=== PATIENT | female | born 1950 | race Caucasian/White ===

== ENCOUNTER 2020-05-18 13:12 | Outpatient (CLI) | payer MEDICARE, OTHER ==
[~2020-05-18 13:12] MED LIST: Magnevist 469MG/ML 20 ML VIAL ONE
--- NOTE | 2020-05-18 15:15 | MRI ---
MRI OF THE BRAIN WITH AND WITHOUT IV CONTRAST: 05/18/20 HISTORY: Confusion, slurred speech. FINDINGS: There are multiple foci of T2 prolongation in the periventricular white matter consistent with chroni c small vessel ischemic disease. The ventricular size is appropriate and the basilar cisterns patent. No restricted diffusion is noted. 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 No infarct, hemorrhage, mass, midline shift or abnormal extra-axial fluid collections are seen. No a bnormal postcontrast enhancement is identified. There is mucosal disease in the right sphenoid sinus. IMPRESSION: Chronic changes. No evidence of acute intracranial process or mass. POS: AH
== END 2020-05-18 13:13 | disposition home or self-care (01) ==
LOC: MRI 13:12
PROVIDERS: ATTEND Nurse Practitioner Family
DX: R41.0 Disorientation, unspecified (principal)
CPT/HCPCS: 70553; A9579

== ENCOUNTER 2021-03-07 15:54 | Inpatient (IN) | payer MEDICARE, OTHER ==
[2021-03-07] MEDS ORDERED: Boostrix 0.5 ML (Tdap) VIAL ONE (16:13)
[2021-03-07] MEDS ORDERED: Lidocaine 1% (PF) 30 ML VIAL ONE (16:13)
[2021-03-07 16:48] LABS: INR-International Normal Ratio 0.9
[2021-03-07] MEDS ORDERED: Fentanyl 100 MCG/2 ML VIAL ONE (16:54)
[2021-03-07] MEDS ORDERED: PROPOFOL 0 ML ONE (16:54)
[2021-03-07 16:55] LABS: PTT 22.7 sec (22.9-36.1)
[2021-03-07 17:02] LABS: ALT (SGPT) 23 U/L (8-55); AST (SGOT) 23 U/L (5-34); Albumin 3.7 g/dL (3.4-4.8); Alkaline Phosphatase 80 U/L (40-110); Anion Gap 12 mmol/L (10-20); BUN (Urea Nitrogen) 10 mg/dL (9.8-20.1); Bilirubin, Total 0.3 mg/dL (0.2-1.2); Calc. Creatinine Clearance 0 mL/min (70-130); Calcium 8.2 mg/dL (7.8-10.44); Carbon Dioxide 26 mmol/L (23-31); Chloride 108 mmol/L (98-107); Globulin 2.7 g/dL (2.4-3.5); Glucose 134 mg/dL (83-110); Potassium 4.2 mmol/L (3.5-5.1); Protein, Total 6.4 g/dL (5.8-8.1); Sodium 142 mmol/L (136-145)
[2021-03-07] MEDS ORDERED: Dextrose 5% in Water 1,000 ML IV PRN (19:16)
[2021-03-07] MEDS ORDERED: Dextrose 50% Abboject 50 ML SYRINGE SLOW IVP PRN (19:16)
[2021-03-07] MEDS ORDERED: Ondansetron PF 4 MG/2 ML Vial IVP PRN (19:16)
[2021-03-07] MEDS ORDERED: hydrALAZINE 20 MG/ML VIAL SLOW IVP PRN (19:16)
[2021-03-07] MEDS ORDERED: Cyclobenzaprine 10 MG TAB PO PRN (19:22)
[2021-03-07] MEDS ORDERED: Morphine 2 MG/ML VIAL SLOW IVP PRN (19:22)
[2021-03-07 23:04] VITALS: BMI 29.9
[2021-03-08] MEDS: Acetaminophen 325 MG TAB PO SCH ×4 (00:50→17:49)
[2021-03-08] MEDS: traMADol HCl 50 MG TAB PO SCH ×4 (00:50→17:50)
[2021-03-08] MEDS: Lactated Ringer's 1,000 ML IV SCH ×3 (00:50→20:27)
[2021-03-08] MEDS: Senokot S 8.6-50 MG TAB PO SCH ×3 (05:37→20:28)
[2021-03-08] MEDS: Oxazepam 10 MG CAP PO SCH ×3 (06:05→20:30)
[2021-03-08 06:19] LABS: SARS-CoV-2 NAA Rapid Test Not Detected (NotDetected)
[2021-03-08] MEDS ORDERED: CEFAZOLIN 2 GM in Premix Bag 1 BAG IVPB SCH (07:15)
[2021-03-08 08:59] LABS: #Basophils 0.1 thou/uL (0.0-0.2); #Eosinphils 0.1 thou/uL (0.0-0.7); #Lymphocytes 2.8 thou/uL (1.20-3.40); #Monocytes 1.1 thou/uL (0.11-0.59); #Neutrophils 4.2 thou/uL (1.40-6.50); %Basophils 0.7 % (0.0-1.0); %Eosinophils 1.3 % (0.0-10.0); %Lymphocytes 33.5 % (21.0-51.0); %Neutrophils 51.4 % (42.0-75.0); Hemoglobin 12.6 g/dL (12.0-16.0); Mean Corpuscular Hemoglobin 32.9 pg (27.0-31.0); Mean Corpuscular Volume 99.7 fL (78.0-98.0); Mean Platelet Volume 7.9 fL (7.4-10.4); Platelet Count 263 thou/uL (130-400); Red Blood Cell (RBC) Count 3.84 mill/uL (4.20-5.40); White Blood Cell (WBC) Count 8.2 thou/uL (4.8-10.8)
[2021-03-08 09:08] LABS: INR-International Normal Ratio 0.9; PTT 23.3 sec (22.9-36.1); Prothrombin Time 12.8 sec (12.0-14.7)
[2021-03-08 09:21] LABS: Phosphorus 3.1 mg/dL (2.3-4.7)
[2021-03-08 09:23] LABS: Anion Gap 13 mmol/L (10-20); BUN (Urea Nitrogen) 22 mg/dL (9.8-20.1); Calc. Creatinine Clearance 95 mL/min (70-130); Calcium 8.1 mg/dL (7.8-10.44); Carbon Dioxide 24 mmol/L (23-31); Chloride 105 mmol/L (98-107); Glucose 121 mg/dL (83-110); Potassium 4.1 mmol/L (3.5-5.1); Sodium 138 mmol/L (136-145)
[2021-03-08] MEDS: Gabapentin 100 MG CAP PO SCH ×3 (09:27→20:28)
[2021-03-08] MEDS: Thiamine 100 MG TAB PO SCH (09:27)
[2021-03-08] MEDS: Famotidine 20 MG TAB PO SCH ×2 (09:29→20:28)
[2021-03-08] MEDS: Folic Acid 1 MG TAB PO SCH (09:30)
[2021-03-08 11:28] LABS: Bacteria/HPF None Seen HPF (None Seen); Bilirubin Negative (Negative); Blood, Urine Negative (Negative); Clarity Clear (Clear); Glucose, Urine (Dipstick) 500 mg/dL (Negative); Ketone, Urine Trace mg/dL (Negative); Leukocyte Negative Leu/uL (Negative); Nitrite Negative (Negative); Protein, Urine (Dipstick) 10 mg/dL (Neg-Trace); RBC/HPF 0-3 HPF (0-3); Specific Gravity, Urine 1.033 (1.002-1.036); Squamous Epithelial 0-3 HPF (0-3); Urobilinogen Normal mg/dL (Less than 2); WBC/HPF 0-3 HPF (0-3)
[2021-03-08 11:41] LABS: Urine Culture Reflex No No
[2021-03-09] MEDS: Acetaminophen 325 MG TAB PO SCH ×4 (00:12→17:41)
[2021-03-09] MEDS: traMADol HCl 50 MG TAB PO SCH ×4 (00:13→17:39)
[2021-03-09] MEDS: traMADol HCl 50 MG TAB PO PRN ×2 (00:14→21:15)
[2021-03-09] MEDS: Oxazepam 10 MG CAP PO SCH ×3 (05:40→21:05)
[2021-03-09] MEDS ORDERED: Fentanyl 100 MCG/2 ML VIAL ONE ×4 (07:36→12:07)
[2021-03-09] MEDS ORDERED: Midazolam HCl 2 mg/2 ml Vial ONE (07:36)
[2021-03-09] MEDS ORDERED: PROPOFOL 200 MG/20 ML VIAL ONE (09:17)
[2021-03-09] MEDS ORDERED: Dexamethasone 20 MG/5 ML VIAL ONE (09:17)
[2021-03-09] MEDS ORDERED: Lidocaine 1% PF 5 ML VIAL ONE (09:17)
[2021-03-09] MEDS ORDERED: Ondansetron PF 4 MG/2 ML Vial ONE (09:17)
[2021-03-09] MEDS ORDERED: Ondansetron HCl/PF 4 MG/2 ML Vial IVP PRN (10:10)
[2021-03-09] MEDS ORDERED: Promethazine HCl 25 MG/ML VIAL IM PRN (10:10)
[2021-03-09] MEDS ORDERED: Promethazine HCl 25 MG/ML VIAL SLOW IVP PRN (10:10)
[2021-03-09] MEDS: Famotidine 20 MG TAB PO SCH ×2 (12:19→21:03)
[2021-03-09] MEDS: Thiamine 100 MG TAB PO SCH (12:19)
[2021-03-09] MEDS: Senokot S 8.6-50 MG TAB PO SCH ×2 (12:19→21:05)
[2021-03-09] MEDS: Folic Acid 1 MG TAB PO SCH (12:19)
[2021-03-09] MEDS: Gabapentin 100 MG CAP PO SCH ×3 (12:19→21:03)
[2021-03-09] MEDS: CEFAZOLIN 2 GM in Premix Bag 1 BAG IVPB SCH ×2 (14:29→21:03)
[2021-03-09] MEDS: Lactated Ringer's 1,000 ML IV SCH (18:26)
[2021-03-10] MEDS: Acetaminophen 325 MG TAB PO SCH ×5 (00:49→23:20)
[2021-03-10] MEDS: traMADol HCl 50 MG TAB PO SCH ×5 (00:50→23:19)
[2021-03-10] MEDS: Oxazepam 10 MG CAP PO SCH ×3 (05:37→21:10)
[2021-03-10] MEDS: Lactated Ringer's 1,000 ML IV SCH ×2 (05:38→19:31)
[2021-03-10] MEDS: Gabapentin 100 MG CAP PO SCH ×3 (09:28→20:05)
[2021-03-10] MEDS: Folic Acid 1 MG TAB PO SCH (09:28)
[2021-03-10] MEDS: Famotidine 20 MG TAB PO SCH ×2 (09:28→20:05)
[2021-03-10] MEDS: Thiamine 100 MG TAB PO SCH (09:28)
[2021-03-10] MEDS: Senokot S 8.6-50 MG TAB PO SCH ×2 (09:28→20:05)
[2021-03-10] MEDS: Aspirin 81 mg Enteric Coated Tablet PO SCH (09:28)
[2021-03-11] MEDS: traMADol HCl 50 MG TAB PO SCH ×2 (05:41→12:25)
[2021-03-11] MEDS: Acetaminophen 325 MG TAB PO SCH ×2 (05:41→12:24)
[2021-03-11] MEDS: Oxazepam 10 MG CAP PO SCH ×2 (05:42→14:58)
[2021-03-11] MEDS: traMADol HCl 50 MG TAB PO PRN (05:44)
[2021-03-11] MEDS: Lactated Ringer's 1,000 ML IV SCH (07:21)
[2021-03-11] MEDS: Gabapentin 100 MG CAP PO SCH ×2 (08:46→14:58)
[2021-03-11] MEDS: Famotidine 20 MG TAB PO SCH (08:47)
[2021-03-11] MEDS: Senokot S 8.6-50 MG TAB PO SCH (08:47)
[2021-03-11] MEDS: Thiamine 100 MG TAB PO SCH (08:47)
[2021-03-11] MEDS: Folic Acid 1 MG TAB PO SCH (08:47)
[2021-03-11] MEDS: Aspirin 81 mg Enteric Coated Tablet PO SCH (08:47)
[2021-03-11 15:39] VITALS: BP 164/76; TEMP 97.8
== END 2021-03-11 15:50 | disposition home or self-care (01) | DRG 494 ==
LOC: ERS 15:54 → ERHOLD 19:15 → SURG B 22:43
PROVIDERS: ADMIT Surgery; ATTEND Surgery
PROC: 0QSH04Z Reposition Left Tibia with Internal Fixation Device, Open Approach (ICD-10-PCS; principal; 2021-03-09)
PROC: 3E0234Z Introduction of Serum, Toxoid and Vaccine into Muscle, Percutaneous Approach (ICD-10-PCS; 2021-03-09)
DX: S82.852A Displaced trimalleolar fracture of left lower leg, initial encounter for closed fracture (principal); W01.0XXA Fall on same level from slipping, tripping and stumbling without subsequent striking against object, initial encounter; Z20.822 Contact with and (suspected) exposure to COVID-19; I10 Essential (primary) hypertension; Z23 Encounter for immunization; F10.10 Alcohol abuse, uncomplicated; Z87.891 Personal history of nicotine dependence
CPT/HCPCS: 27818; 36415; 71045; 76000; 80048; 80053; 81001; 83735; 84100; 85025; 85610; 85730; 90471; 90715; 93005; 96365; 96375; C1713; G0390; J0690; J1100; J2001; J2250; J2405; J2704; J3010; U0002

== ENCOUNTER 2024-06-21 13:19 | Outpatient (CLI) | payer MEDICARE, OTHER | END 2024-06-21 13:20 | disposition home or self-care (01) | LOC: BICRAD 13:19 | PROVIDERS: ATTEND Family Medicine | DX: M54.50 Low back pain, unspecified (principal); M54.6 Pain in thoracic spine; S32.010D Wedge compression fracture of first lumbar vertebra, subsequent encounter for fracture with routine healing; S32.020D Wedge compression fracture of second lumbar vertebra, subsequent encounter for fracture with routine healing; S32.030D Wedge compression fracture of third lumbar vertebra, subsequent encounter for fracture with routine healing; S32.040D Wedge compression fracture of fourth lumbar vertebra, subsequent encounter for fracture with routine healing; S32.050D Wedge compression fracture of fifth lumbar vertebra, subsequent encounter for fracture with routine healing; S22.070D Wedge compression fracture of T9-T10 vertebra, subsequent encounter for fracture with routine healing; S22.080D Wedge compression fracture of T11-T12 vertebra, subsequent encounter for fracture with routine healing | CPT/HCPCS: 72072; 72100 ==